=== PATIENT | female | born 1945 | race Caucasian/White ===

== ENCOUNTER 2018-10-27 05:35 | Day surgery (SDC) | payer MEDICARE ==
[~2018-10-27] VITALS: Ht 160 cm; Wt 77.6 kg
[2018-10-27] VITALS (8 sets, daily range): BP systolic 104–144; BP diastolic 62–74
[~2018-10-27 05:35] MED LIST: CALC-877 PO; CYAN50008 PO; ESOM20SU PO; FOLI0.8C PO; L.AC1CAP6 PO; LISI1TAB9 PO; MONT10TA24 PO; SODIUM CHLORIDE 0.9% 1000ML 1,000 ML IV ONE; UBID100C10 PO
[2018-10-27] MEDS ORDERED: LIDOCAINE HCL 2% 20ML ONE (06:31)
[2018-10-27] MEDS ORDERED: FENTANYL CITRATE PF 50 MCG/1 ML 2ML VIAL ONE (06:31)
[2018-10-27] MEDS ORDERED: GLYCOPYRROLATE 0.2 MG/ML 5 ML VIAL ONE (06:31)
[2018-10-27] MEDS ORDERED: PROPOFOL 10 MG/ML 20ML VIAL IV ONE ×2 (06:31→06:51)
== END 2018-10-27 07:40 | disposition home or self-care (01) ==
LOC: ENDO 05:35 → DAH 05:35 → ENDO 07:40
PROVIDERS: ATTEND Internal Medicine
DX: K29.70 Gastritis, unspecified, without bleeding (principal); K86.2 Cyst of pancreas; K31.89 Other diseases of stomach and duodenum; R93.5 Abnormal findings on diagnostic imaging of other abdominal regions, including retroperitoneum; D56.9 Thalassemia, unspecified; I10 Essential (primary) hypertension; K62.5 Hemorrhage of anus and rectum; K90.0 Celiac disease; Z88.8 Allergy status to other drugs, medicaments and biological substances; Z90.49 Acquired absence of other specified parts of digestive tract; Z79.899 Other long term (current) drug therapy; D64.9 Anemia, unspecified; Z68.30 Body mass index [BMI] 30.0-30.9, adult
CPT/HCPCS: 43237; 93005; A4606; J2704 ×2; J3010; J3490 ×2; J7030